=== PATIENT | female | born 1970 | race Caucasian/White ===

== ENCOUNTER 2025-08-02 10:29 | Day surgery (SDC) | payer OTHER ==
[2025-08-02] MEDS ORDERED: CEFAZOLIN SODIUM ONE (10:45)
[2025-08-02] MEDS: Lactated Ringers 1,000 ML IV SCH (10:54)
[2025-08-02 11:05] VITALS: RESP 18
[2025-08-02 11:12] LABS: Hematocrit 46.6 % (34.1-44.9); Hemoglobin 14.8 g/dL (11.2-15.7); Mean Corpuscular Hemoglobin 31.2 pg (25.6-32.2); Mean Corpuscular Hgb Concent. 31.8 g/dL (32.2-35.5); Platelet Count 279 x10^3/uL (182-369); Red Blood Count 4.75 x10^6/uL (3.93-5.22); White Blood Count 8.1 x10^3/uL (3.98-10.04)
[2025-08-02] MEDS ORDERED: TYLENOL EXTRA STRENGTH 500 MG ONE (11:14)
[2025-08-02] MEDS ORDERED: NEURONTIN ONE (11:14)
[2025-08-02] MEDS ORDERED: Decadron 4 MG ONE (11:15)
[2025-08-02] MEDS ORDERED: celeBREX 100 MG ONE (11:15)
[2025-08-02] MEDS: celeBREX 100 MG PO ONE (11:18)
[2025-08-02] MEDS: Decadron 4 MG PO ONE (11:19)
[2025-08-02] MEDS: TYLENOL EXTRA STRENGTH 500 MG PO ONE (11:19)
[2025-08-02] MEDS: NEURONTIN PO ONE (11:19)
[2025-08-02 11:25] LABS: Calcium 8.8 mg/dL (8.4-10.2); Carbon Dioxide 22.0 mmol/L (22-30); Creatinine 1 1.15 mg/dL (0.52-1.04); EST GLOMERULAR FILTRATION RATE 56.6 ML/MIN; Glucose 100.0 mg/dL (74-106); Potassium 4.2 mmol/L (3.5-5.1); SGOT/AST 20.0 U/L (14-36); SGPT/ALT 14.0 U/L (0-35); Total Protein 6.9 g/dL (6.3-8.2)
[2025-08-02] MEDS ORDERED: Lactated Ringers 1,000 ML IV ONE ×2 (11:40→14:26)
[2025-08-02] MEDS ORDERED: SUBLIMAZE 100 MCG/2 ML ONE (12:31)
[2025-08-02] MEDS ORDERED: Marcaine Mpf 0.5% Vial 30 Ml ONE (12:31)
[2025-08-02] MEDS ORDERED: propofoL IV ONE (12:31)
[2025-08-02] MEDS ORDERED: EXPAREL 133 MG/10 ML VIAL IJ ONE (12:31)
[2025-08-02] MEDS ORDERED: ROCURONIUM BROMIDE IV ONE (12:31)
[2025-08-02] MEDS ORDERED: Versed 2 MG/2 ML Injection ONE (12:32)
[2025-08-02] MEDS ORDERED: ROBINUL ONE (12:55)
[2025-08-02] MEDS ORDERED: Ephedrine Sulfate 50 MG/ML ONE (12:58)
--- NOTE | 2025-08-02 14:57 | XRAY ---
Indication: Left Achilles tendon detachment, debridement, reattachment, posterior calcaneal exostectomy, and possible gastrocnemius recession. Intraoperative fluoroscopy provided for 49 seconds. 7 digital spot images submitted for interpretation demonstrates partial excision posterior calcaneus with 4 tunnel radiolucencies drilled. Correlate with intraoperative findings/report.
[2025-08-02] MEDS ORDERED: BRIDION 200MG/2ML IV ONE (15:03)
[2025-08-02] MEDS ORDERED: Xylocaine-Mpf 2% 5 Ml Vial ONE (15:03)
[2025-08-02] MEDS ORDERED: Zofran 4 MG/2 ML VIAL ONE (15:03)
[2025-08-02 16:16] VITALS: BP 108/59; PULSE 65; TEMP 96.1; O2SAT 97
--- NOTE | 2025-08-03 12:01 | OP ---
SURGERY DATE/TIME: 08/02/2025 [id number]. 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 2) Insertional Achilles tendinitis. 3) Left ankle pain. 4) Difficulty with ambulation. 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 2) Insertional Achilles tendinitis. 3) Left ankle pain. 4) Difficulty with ambulation. PROCEDURE: Achilles tendon detachment, debridement, repair, and re-attachment along with posterior calcaneal exostectomy. SURGEON: Reed Cabrera DPM [employer] SUPERVISOR: BOB Palma ANESTHESIA: General plus a preoperative popliteal and saphenous block. HEMOSTASIS: A thigh tourniquet set to 300 mmHg for 60 total tourniquet minutes. ESTIMATED BLOOD LOSS: Approximately 3 mL. MATERIALS: A [employer] with broadband, SpeedBridge, two 4.5 Quattro Links, and a 4 x 3. INDICATIONS: The patient is a very pleasant 54-year-old female who presented to my service after seeing multiple providers for insertional Achilles tendinitis to the left lower extremity. She had associated spurring as well as Carlotta deformity to the left lower extremity which failed conservative management consisting of night splints, stretching exercises, physical therapy, anti-inflammatory, as well as modification in activity. At this time, patient is amenable to proceeding with surgical intervention. She has been made aware of all risks, complications, and benefits of surgical intervention including, but not limited to, infection, hematoma, seroma, possibility of delayed wound healing, non-wound healing, and possible need for further surgical intervention at a later time. No guarantees were provided as to the outcome of surgical intervention. Plenty of time was allowed for the patient as well as her to ask questions, which were answered to their apparent satisfaction. It is at this time we decided to proceed. DESCRIPTION OF PROCEDURE AND FINDINGS: The patient was brought into the PACU prior to the procedure and provided a popliteal and saphenous block. See Anesthesia report for details. Following this, patient was brought into the operating room, placed under general anesthesia on her cart, and then flipped carefully into a prone position on the OR table. Once this was accomplished, a well-padded thigh tourniquet was applied to the left lower extremity. The left lower extremity was prepped and draped in typical sterile fashion and lowered onto the surgical field. At this time, attention was directed where a linear incision was made at the midline of the Achilles insertion, extending approximately 6 to 8 cm from the plantar surface of the foot midline to the insertion of the Achilles tendon and approximately 2 to 3 cm above this point. Once this incision was deepened to the layer of the peritenon, which was incised in a full thickness slot, and then elevated off the edge. Once this was accomplished, an inverted T-incision was made into the Achilles tendon, reflecting the tendon ends off the distal aspect of the insertion of the Achilles tendon. From that standpoint, a 31 mm sagittal saw was then utilized to resect the posterior spurring as well as the Carlotta deformity at the posterior aspect of the calcaneus until this was deemed to be adequate with no spurring and a smooth surface. Power rasp was then utilized to resurface the area and allow for roughened areas for the tendon to re-attach. From that standpoint, copious amounts of sterile saline were utilized to flush the surgical site. Then, the tendon was debrided utilizing a 10 blade and pick-ups, removing any calcified or diseased-appearing tendon. Once this was performed, the tendon was repaired utilizing 4-0 Monocryl in a continuous interlocking type fashion. Once this was performed, the 2.9 JuggerKnot's with broadband were placed into the proximal row going back through the tendon, and then utilizing an inverted row type technique to anchor it to two 4.5 Quattro Links in the central aspect of the calcaneus. Once this was accomplished, there was a significant improvement in the quality of the tendon under visual inspection. Some of the tendon did appear to be diseased on the surface for which a 4 x 3 was utilized to improve the quality of the collagen. Copious amounts of sterile saline were then utilized to flush the surgical site. The peritenon was repaired, and then 4-0 Monocryl was utilized to coapt the subcutaneous skin edges in a simple interrupted buried type fashion, and then 3-0 nylon was utilized in a horizontal mattress type fashion to coapt the skin edges in an everted type fashion. A dressing consisting of Betadine, Adaptic, 4 x 4, Kerlix, ABD, and a well-padded posterior splint was applied to the patient's left lower extremity with the foot approximately 45 degrees relative to the longitudinal axis of the leg. The patient was reversed from anesthesia and returned to the postoperative anesthesia care unit with vital signs stable and vascular status intact. The patient handled the anesthesia as well as the procedure without significant complication. Postoperative orders as indicated in the patient's discharge chart.
--- NOTE | 2025-08-03 12:16 | XRAY ---
49 seconds of fluoroscopy used in surgery for a left Achilles tendon detachment, debridement, reattachment, posterior calcaneal exostectomy, and possible gastrocnemius recession.
== END 2025-08-02 16:34 | disposition home or self-care (01) ==
LOC: SDC 10:29
PROVIDERS: ATTEND Podiatrist Foot & Ankle Surgery
DX: M77.32 Calcaneal spur, left foot (principal); M76.62 Achilles tendinitis, left leg; M25.572 Pain in left ankle and joints of left foot; R26.2 Difficulty in walking, not elsewhere classified